=== PATIENT | female | born 1980 ===

== ENCOUNTER 2019-03-13 10:20 | Outpatient (CLI) | payer OTHER ==
[~2019-03-13] VITALS: Ht 152.4 cm; Wt 159.7 kg
== END 2019-03-13 10:40 | disposition home or self-care (01) ==
LOC: OFIC 805 10:20
DX: J31.0 Chronic rhinitis (principal); D44.7 Neoplasm of uncertain behavior of aortic body and other paraganglia; H93.12 Tinnitus, left ear

== ENCOUNTER → 2019-09-24 | Outpatient (CLI) | payer OTHER ==
[~2019-09-24] VITALS: Ht 152.4 cm; Wt 159.7 kg
== END | disposition home or self-care (01) ==
LOC: OFIC 805 13:14
DX: J31.0 Chronic rhinitis (principal); D44.7 Neoplasm of uncertain behavior of aortic body and other paraganglia; H93.12 Tinnitus, left ear

== ENCOUNTER 2020-04-06 12:31 | Outpatient (CLI) | payer OTHER | END 2020-04-06 13:00 | disposition home or self-care (01) | LOC: OFIC 805 12:31 | PROVIDERS: ATTEND Otolaryngology | DX: J31.0 Chronic rhinitis (principal); H93.12 Tinnitus, left ear; H93.8X2 Other specified disorders of left ear ==